=== PATIENT | male | born 1990 | race Caucasian/White ===

== ENCOUNTER 2017-05-19 20:18 | Inpatient (IN) | payer BC, OTHER ==
[~2017-05-19] VITALS: Ht 167.6 cm; Wt 83.9 kg
[2017-05-19 21:45] VITALS: BP 123/75
--- NOTE | 2017-05-19 21:45 | NUR ---
Pre-Admission Pre-admission assessment performed in the intake department of [facility]. Pt is A&O x4 and ambulatory with a steady gait. Pt does not seem intoxicated and answers all questions appropriately. He does appear slightly anxious. Vital signs are B/P 123/75, HR 66, RR 20, O2 sat 100%, T 98.0, pain 0/10. He has NKA and no seizure history. Pt reports that he has been using Xanax, Heroin, and Crystal Meth. He is stable and admission to continue on the [facility].
[2017-05-19] MEDS ORDERED: BUPRENORPHINE HCL 2 MG TAB.SUBL SL PRN (22:15)
[2017-05-19] MEDS ORDERED: MIRALAX 17 GM POWD.PACK PO PRN (22:15)
[2017-05-19] MEDS ORDERED: ACETAMINOPHEN 325 MG TABLET PO PRN (22:15)
[2017-05-19] MEDS ORDERED: LORAZEPAM 2 MG/1 ML VIAL IM PRN (22:15)
[2017-05-19] MEDS ORDERED: ONDANSETRON 4 MG/2 ML VIAL IM PRN (22:15)
[2017-05-19] MEDS ORDERED: LORAZEPAM 1 MG TABLET PO PRN ×2 (22:15)
[2017-05-19] MEDS ORDERED: LOPERAMIDE HCL 2 MG CAPSULE PO PRN ×2 (22:15)
[2017-05-19] MEDS ORDERED: diphenhydrAMINE 50 MG CAPSULE PO PRN (22:15)
[2017-05-19] MEDS ORDERED: MAG HYDROX/AL HYDROX/SIMETH 30 ML LIQUID UDC PO PRN (22:15)
[2017-05-19] MEDS ORDERED: LORAZEPAM 1 MG TABLET PO ONE (23:00)
[2017-05-19] MEDS ORDERED: BUPRENORPHINE HCL 2 MG TAB.SUBL SL ONE ×2 (23:00→23:22)
[2017-05-19 23:15] LABS: BASOPHILS # (AUTO) 0.1 K/uL (0.0-8.0); EOSINOPHILS # (AUTO) 0.4 K/uL (0.0-0.7); EOSINOPHILS % (AUTO) 3.8 % (0.0-7.0); HEMATOCRIT 47.6 % (40-50); LYMPHOCYTES # (AUTO) 3.3 K/UL (0.8-4.8); LYMPHOCYTES % (AUTO) 31.6 % (20.5-51.5); MEAN CORPUSCULAR HGB CONC 34 g/dL (32.0-37.0); MEAN CORPUSCULAR VOLUME 89.5 FL (82.0-92.0); MONOCYTES # (AUTO) 0.8 K/UL (0.1-1.30); MONOCYTES % (AUTO) 7.3 % (0.0-11.0); NEUTROPHILS % (AUTO) 56.3 % (38.5-71.5); PLATELET COUNT (AUTO) 290 K/UL (150-450); RED BLOOD CELL COUNT(AUTO) 5.32 MIL/UL (4.7-6.1); WHITE BLOOD COUNT (AUTO) 10.6 K/UL (4.0-11.2)
[2017-05-19] MEDS ORDERED: TRAZODONE 50 MG TABLET PO PRN (23:15)
[2017-05-19 23:20] LABS: ALANINE AMINOTRANSFERASE 29 U/L (16-63); ALKALINE PHOSPHATASE 64 U/L (50-136); ASPARTATE AMINOTRANSFERASE 14 U/L (15-37); BILIRUBIN,TOTAL 0.2 mg/dL (0.2-1.0); CARBON DIOXIDE 28 mmol/L (21-32); CHLORIDE 106 mmol/L (98-107); CREATININE 1.1 mg/dL (0.6-1.3); GLUCOSE 92 mg/dL (74-106); MAGNESIUM 1.8 mg/dL (1.8-2.4); POTASSIUM 3.7 mmol/L (3.5-5.1); TOTAL PROTEIN, SERUM 6.9 g/dL (6.4-8.2); UREA NITROGEN, BLOOD 13 mg/dL (7-18)
[2017-05-19] MEDS ORDERED: LORAZEPAM 1 MG TABLET ONE (23:20)
[2017-05-19] MEDS ORDERED: ONDANSETRON ODT 4 MG TAB.RAPDIS ONE (23:22)
[2017-05-19] MEDS ORDERED: IBUPROFEN 600 MG TABLET ONE (23:22)
[2017-05-19 23:30] LABS: ETHANOL < 3 MG/DL (0-0)
--- NOTE | 2017-05-19 23:30 | NUR ---
Admission Pt is a 26 yo male who arrived on the [facility] at 2202 on 05/19/17 for medically supervised detox. He is A&O x4 and ambulatory. NKA, full code status, and on a regular diet. Body check performed by TECHNOLOGY DEVELOPMENT INTERN and skin check performed by the nurse. He was oriented to the unit and shown to his room. Pt does not appear intoxicated and answers questions appropriately. He is cooperative during assessment but appears slightly anxious. Vital signs in intake are B/P 123/75, HR 66, RR 20, O2 sat 100%, T 98.0, pain 0/10. He is 5'6" and weighs 185lb. He has PMH of left fractured knee with surgical repair in 2016, drug overdose on 05/15/17, bipolar, anxiety, and depression. Lung sounds clear, PERRLA, brisk capillary refill, bowel sounds present, skin is intact. History of Use 1) Xanax 1-2 mg per day for the past 3 months. Last used 1mg 05/18/17. He has used xanx off and on for 11 years. 2) Heroin inhalation and IV x3 only. 1 gram per day for the past 3 months. Last used 1 gram IV on 05/15/17. He has used heroin for 1 year. 3) Crystal meth inhalation 1 gram per day for the past 1 month. Last used 1 gram on 05/15/17. He has used crystal meth for 1 month. Treatment History [facility] for detox in 2013. Pt takes Seroquel and Prozac at home. He smokes 5 cigarettes per day. He reports that on 05/15/17 he used heroin IV and overdosed. He was treated in the emergency department at [facility] and discharged the same day. His longest period of sobriety was 9 months in 2013. He decided to come to treatment today because "I'm scared". Pt lives at home with his fianc. 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 His primary care physician is Dr. Ackerman in [place]. On admission he is experiencing some s/s of withdrawal. COWS [address] Amezcua on the floor to see the patient. Admission orders received. Pt educated regarding use of the call light and all questions answered. Fall precautions in place. Bed is down with call light in reach. Addendum: 05/20/17 at 0640 by JOHN PAUL MOHAN RN Adilson anaya SI/
[2017-05-19 23:55] VITALS: BP 127/73
[2017-05-19] MEDS: ONDANSETRON ODT 4 MG TAB.RAPDIS SL PRN (23:59)
[2017-05-20] VITALS (9 sets, daily range): BP systolic 92–138; BP diastolic 53–95
--- NOTE | 2017-05-20 | NUR ---
PRN Zofran, PRN Motrin, One time Ativan, One time Subutex Pt c/o nausea, chills, hot and cold flashes, body aches, headache, anxiety, and restlessness. COWS 13 and CIWA 10. Orders received from Dr. Amezcua for one time Ativan and one time Subutex. PRN Zofran and Motrin also administered.
[2017-05-20 00:22] LABS: *AMPHETAMINE, URINE POSITIVE (NEGATIVE); *BARBITURATE, URINE NEGATIVE (NEGATIVE); *CANNABINOID, URINE NEGATIVE (NEGATIVE); *COCCAINE, URINE NEGATIVE (NEGATIVE); *OPIATE, URINE NEGATIVE (NEGATIVE); *PHENCYCLIDINE SCREEN,URINE NEGATIVE (NEGATIVE)
--- NOTE | 2017-05-20 01:00 | NUR ---
Medication reassessment PRN Motrin and Zofran effective. Pt reports headache and nausea relieved. One time subutex and Ativan effective. Pt reports feeling more less anxious. Chills and body aches are somewhat relieved. COWS 7 and CIWA 5.
[2017-05-20] MEDS: CLONIDINE HCL 0.1 MG TABLET PO PRN ×3 (01:20→17:07)
[2017-05-20] MEDS: METHOCARBAMOL 750 MG TABLET PO PRN ×3 (01:21→23:17)
--- NOTE | 2017-05-20 01:22 | NUR ---
PRN Clonidine, Robaxin, and Trazodone Pt reports hot and cold flashes, restlessness, body aches, and inability to sleep. He has moist skin. COWS 7 and CIWA 5. PRN Clonidine, Robaxin, and Trazodone administered.
[2017-05-20] MEDS ORDERED: CLONIDINE HCL 0.1 MG TABLET ONE (01:30)
[2017-05-20] MEDS ORDERED: TRAZODONE 50 MG TABLET ONE (01:31)
[2017-05-20] MEDS ORDERED: METHOCARBAMOL 750 MG TABLET ONE (01:31)
--- NOTE | 2017-05-20 02:22 | NUR ---
Medication reassessment PRN Clonidine, Robaxin, and Trazodone effective. Pt is lying in bed resting with eyes closed. Respirations even and unlabored. Safety measures in place.
[2017-05-20] MEDS ORDERED: FLUO40CA8 PO (05:08)
[2017-05-20] MEDS ORDERED: MULT-331 PO (05:08)
[2017-05-20] MEDS ORDERED: QUET100T PO (05:08)
--- NOTE | 2017-05-20 07:24 | NUR ---
END OF SHIFT Report provided to day shift nurse. Pt is lying in bed resting. He is a 26 yo male admitted to [facility] on 05/19 at 2202 for BZD and opiate dependence with a h/o crystal meth use. He is A&O and ambulatory. NKA, full code, regular diet. PMH of fractured left knee with surgery in 2016, bipolar, anxiety, and depression. He was experiencing withdrawal symptoms upon admission. One time Subutex and one time Ativan administered per Dr. Amezcua. He also received PRN Zofran, Motrin, Robaxin, Clonidine, and Trazodone. Last COWS 7 and CIWA 5 before PRN's. He drank 1200mL and slept for 4 hours[address] Safety measures in place.
--- NOTE | 2017-05-20 07:30 | NUR ---
START OF SHIFT Pt 26 y/o male admitted for BZD and opiate dependence. Pt received in room with eyes closed resting, but easily arousable to name. Pt alert and oriented to name, place, and time. Perrla. Skin warm and moist to touch. Respirations even and unlabored. It was reported that pt slept for 4 hours last night. Pt states was feeling anxious. Bed on lowest position with side rails x2 up for safety. Call light within reach. No distress noted at this time.
[2017-05-20] MEDS ORDERED: GABAPENTIN 300 MG CAPSULE PO SCH (09:00)
[2017-05-20] MEDS ORDERED: TUBERCULIN,PURIF.PROT.DERIV. 5 TU/0.1 ML TEST ID ONE (09:00)
[2017-05-20] MEDS: MULTIVITAMINS,THERAPEUTIC TABLET PO SCH (09:04)
[2017-05-20] MEDS: LORAZEPAM 1 MG TABLET PO SCH ×3 (09:04→20:46)
[2017-05-20] MEDS: ONDANSETRON ODT 4 MG TAB.RAPDIS SL PRN (09:04)
[2017-05-20] MEDS: BUPRENORPHINE HCL 2 MG TAB.SUBL SL SCH ×3 (09:04→20:48)
[2017-05-20] MEDS: IBUPROFEN 600 MG TABLET PO PRN ×3 (09:04→20:47)
--- NOTE | 2017-05-20 09:04 | NUR ---
PRN Pt states feels nauseous. Zofran odt prn per MD order given and tolerated well.
--- NOTE | 2017-05-20 09:04 | NUR ---
PRN Pt states has generalized body pain 6/10. Motrin po prn per MD order given and tolerated well.
--- NOTE | 2017-05-20 10:04 | NUR ---
PRN DEANN Pt states pain 12/27.
--- NOTE | 2017-05-20 10:04 | NUR ---
PRN EVAL Pt denies any nausea at this time.
[2017-05-20] MEDS: HYDROXYZINE PAMOATE 25 MG CAPSULE PO PRN ×2 (10:59→17:07)
[2017-05-20] MEDS: DICYCLOMINE HCL 20 MG TABLET PO PRN (10:59)
--- NOTE | 2017-05-20 12:14 | NUR ---
PRN Pt with cows=12. Pt with c/o chills and sweats. Bilateral hand tremors noted. Pt states feels very uncomfortable. Subutex po prn per MD order given and tolerated well.
--- NOTE | 2017-05-20 13:14 | NUR ---
PRN EVAL Cows=2. Pt states he feels better at this time.
[2017-05-20] MEDS: FLUOXETINE HCL 20 MG CAPSULE PO SCH (15:04)
[2017-05-20] MEDS: GABAPENTIN 300 MG CAPSULE PO SCH ×2 (15:05→20:47)
--- NOTE | 2017-05-20 17:09 | NUR ---
PRN Pt states feels anxious. Vistaril po prn per MD order given and tolerated well.
--- NOTE | 2017-05-20 17:10 | NUR ---
PRN Pt states feels very anxious. Catapres po prn per MD order given and tolerated well.
--- NOTE | 2017-05-20 18:10 | NUR ---
PRN EVAL Pt observed walking around unit. No distress noted at this time.
--- NOTE | 2017-05-20 18:21 | NUR ---
END OF SHIFT Pt 26 y/o male admitted for BZD+ opiate dependence. Pt alert and oriented to name, place, and time. Perrla. Skin warm and slightly moist to touch. Respirations even and unlabored. Bilateral hand tremors noted. Pt with periods of chills and sweats. Pt with periods of anxiety throughout the day. Pt observed mostly in dining room throughout the day. Pt attended group activity today. Pt was seen by MD today. Pt medication compliant and tolerated well. No ASE noted. Bed on lowest position with side rails x2 up for safety. Call light within reach. No distress noted at this time.
--- NOTE | 2017-05-20 20:00 | NUR ---
START OF SHIFT Received report from day shift nurse. Pt is in his room watching TV. He is a 26 yo male admitted to [facility] on 04/21 for BZD and opiate dependence with a h/o crystal meth use. He is A&O and ambulatory. NKA, full code, regular diet. PMH of fractured left knee with surgery in 2016, bipolar, anxiety, and depression. On admission he reported using Xanax 1-2mg per day, heroin 1 gram per day, and crystal meth 1 gram per week. He started a 4 day Subutex and 4 day Ativan taper today. Pt reports chills, hot and cold flashes, muscle aches, and anxiety. Fall precautions in place. Bed is down with call light in reach.
[2017-05-20] MEDS: CLONIDINE HCL 0.1 MG TABLET PO SCH (20:46)
[2017-05-20] MEDS: QUETIAPINE FUMARATE 100 MG TABLET PO SCH (20:47)
--- NOTE | 2017-05-20 20:48 | NUR ---
PRN Motrin Pt c/o headache 01/26. PRN Motrin administered.
--- NOTE | 2017-05-20 21:48 | NUR ---
PRN Motrin reassessment PRN Motrin effective. Pt reports headache is relieved.
--- NOTE | 2017-05-20 23:18 | NUR ---
PRN Robaxin Pt c/o generalized body aches 01/26. PRN Robaxin administered.
[2017-05-21] VITALS: BP 109/70
[2017-05-21 01:30] VITALS: BP 108/69
--- NOTE | 2017-05-21 04:00 | NUR ---
0400 Vitals refused/COWS and CIWA deferred Pt refused to be woken for 0400 vitals. He is lying in bed resting with eyes closed. Respirations even and unlabored. COWS and CIWA ordered Q4HWA. Safety measures in place.
[2017-05-21 06:08] LABS: HEPATITIS B SURFACE AG Negative (Negative)
--- NOTE | 2017-05-21 07:21 | NUR ---
END OF SHIFT Report provided to day shift nurse. Pt is lying in bed resting. He is a 26 yo male admitted to [facility] on 04/21 for BZD and opiate dependence with a h/o crystal meth use. He is A&O and ambulatory. NKA, full code, regular diet. PMH of fractured left knee with surgery in 2016, bipolar, anxiety, and depression. On admission he reported using Xanax 1-2mg per day, heroin 1 gram per day, and crystal meth 1 gram per week. 4 day Subutex and 4 day Ativan taper started 05/20. PRN Motrin and Robaxin administered. Pt woke up with one episode of coughing. He denied SOB. Vital signs were stable O2 sat 98%. Mild wheezing heard in right lung jarquin. Last COWS 3 and CIWA 2. He drank 1500mL and slept for 5 hours. Fall precautions in place. Bed is down with call light in reach.
--- NOTE | 2017-05-21 07:30 | NUR ---
START OF SHIFT Pt 26 y/o male admitted for BZD and opiate dependence. Pt received in room on bed watching television. Pt alert and oriented to name, place, and time. Perrla. Skin warm and moist to touch. Respirations even and unlabored. It was reported that pt slept for 5 hours last night. Pt states was feeling anxious this morning. Bed on lowest position with side rails x2 up for safety. Call light within reach. No distress noted at this time.
[2017-05-21 08:00] VITALS: BP 112/80
[2017-05-21] MEDS: METHOCARBAMOL 750 MG TABLET PO PRN ×2 (08:39→16:39)
[2017-05-21] MEDS: FLUOXETINE HCL 20 MG CAPSULE PO SCH (08:39)
[2017-05-21] MEDS: MULTIVITAMINS,THERAPEUTIC TABLET PO SCH (08:39)
[2017-05-21] MEDS: GABAPENTIN 300 MG CAPSULE PO SCH (08:39)
[2017-05-21] MEDS: CLONIDINE HCL 0.1 MG TABLET PO SCH ×3 (08:39→20:06)
--- NOTE | 2017-05-21 08:39 | NUR ---
PRN Pt states has general body pain /. Robaxin po prn per MD order given and tolerated well.
[2017-05-21] MEDS: ONDANSETRON ODT 4 MG TAB.RAPDIS SL PRN (08:40)
--- NOTE | 2017-05-21 08:40 | NUR ---
PRN Pt states feels nauseated. Zofran odt prn per MD order given and tolerated well.
[2017-05-21] MEDS ORDERED: BUPRENORPHINE HCL 2 MG TAB.SUBL SL SCH ×2 (09:00→15:00)
[2017-05-21] MEDS ORDERED: LORAZEPAM 1 MG TABLET PO SCH (09:00)
--- NOTE | 2017-05-21 09:39 | NUR ---
PRN DEANN Pt states pain 10/29.
--- NOTE | 2017-05-21 09:40 | NUR ---
PRN EVAL Pt denies any nausea at this time.
[2017-05-21] MEDS: HYDROXYZINE PAMOATE 25 MG CAPSULE PO PRN ×2 (09:58→16:40)
[2017-05-21] MEDS: CLONIDINE HCL 0.1 MG TABLET PO PRN (09:58)
--- NOTE | 2017-05-21 09:58 | NUR ---
PRN Pt states feels anxious. Vistaril po prn per MD order given and tolerated well.
--- NOTE | 2017-05-21 09:59 | NUR ---
PRN Pt states feels really anxious. Catapres po prn per MD order given and tolerated well.
--- NOTE | 2017-05-21 10:48 | NUR ---
JIMENEZ ZACARIAS Pt observed walking around the unit.
--- NOTE | 2017-05-21 10:59 | NUR ---
JIMENEZ ZACARIAS Pt observed walking around the unit.
[2017-05-21 12:45] VITALS: BP 125/71
[2017-05-21] MEDS ORDERED: LORAZEPAM 1 MG TABLET PO ONE (12:45)
[2017-05-21] MEDS ORDERED: BUPRENORPHINE HCL 2 MG TAB.SUBL SL ONE (12:45)
--- NOTE | 2017-05-21 14:28 | NUR ---
Therapist prompted client about group times. Client stated he will attend all groups today.
[2017-05-21] MEDS: GABAPENTIN 400 MG CAPSULE PO SCH ×2 (14:30→20:05)
[2017-05-21] MEDS: BACLOFEN 10 MG TABLET PO SCH ×2 (14:30→20:05)
[2017-05-21 16:00] VITALS: BP 126/88
[2017-05-21] MEDS: BUPRENORPHINE HCL 2 MG TAB.SUBL SL SCH ×2 (16:40→20:05)
[2017-05-21] MEDS: LORAZEPAM 1 MG TABLET PO SCH ×2 (16:40→20:05)
--- NOTE | 2017-05-21 18:28 | NUR ---
END OF SHIFT Pt 26 y/o male admitted for BZD+ opiate dependence. Pt alert and oriented to name, place, and time. Perrla. Skin warm and slightly moist to touch. Respirations even and unlabored. Bilateral hand tremors noted. Pt with periods of anxiety throughout the day. Pt observed mostly in dining room throughout the day. Pt attended group activity today. Pt was seen by MD today. Pt medication compliant and tolerated well. No ASE noted. Bed on lowest position with side rails x2 up for safety. Call light within reach. No distress noted at this time.
--- NOTE | 2017-05-21 18:50 | NUR ---
START OF SHIFT NOTE: Patient endorsed by outgoing day shift nurse. Report received. Patient is a 26 year old male admitted to [facility] on 05/19/17 for Benzodiazepines, Opioid, and Methamphetamine dependence, continue 4 Day Ativan and 4 Day Subutex Taper with tolerated well without ASE. Patient remains compliant with treatment, medications, and diet regime. Patient reports NKA. Patient is Full Code, Regular Diet. Patient is on Fall and Seizures Precautions. Patient denies History of Seizures. PMH: Bipolar disorder, Anxiety disorder, Insomnia, Chronic tobacco use. Past Surgical History: Left meniscus repair. Patient reports "[facility] Det[facility] in 2012". Upon endorsement patient is in his Room alert and oriented x 4. Speech is soft and clear. VS: T: 98.5; BP: 134/87; HR: 90; RR:19; O2 SAT: 96%. Generalized body aches level: "7/10". CIWA 7, COWS 7. Patient is anxious and agitated. Patient c/o increased anxiety, nervousness, severe body aches, tremors, and barely sweating. Respiration s clear and even. Patient denies SOB, cough, and chest pain. Breathing Sounds are clear throughout. Bowel Sounds are active in all four quadrants. Patient denies SI/HI. Skin is intact, warm, and dry to touch. Encouraged fluids as tolerated. Encourage to attend groups activities. All needs met. Safety measures on place. Call light within reach, bed in lowest position and locked, padded rails up bilaterally. Will continue to monitor closely.
[2017-05-21 20:00] VITALS: BP 134/87
[2017-05-21] MEDS: QUETIAPINE FUMARATE 100 MG TABLET PO SCH (20:06)
[2017-05-21] MEDS: IBUPROFEN 600 MG TABLET PO PRN (21:54)
--- NOTE | 2017-05-21 21:54 | NUR ---
PRN MOTRIN 600 MG 1 TAB PO ADMINISTRATION Patient c/o low back pain "03/28", and asked aid. PRN Motrin 600 mg 1 tab PO administrated with full glass of water as ordered. Patient tolerated well. All needs met. Safety measures on place. Call light within reach, bed in lowest position and locked, padded rails up bilaterally rails up bilaterally. Will continue to monitor closely.
--- NOTE | 2017-05-21 22:54 | NUR ---
RE-ASSESSMENT Patient is sleeping. Respirations even and unlabored. RR:14. PRN Motrin PO was effective. All needs met. Safety measures on place. Call light within reach, bed in lowest position and locked, padded rails up bilaterally rails up bilaterally. Will continue to monitor closely.
[2017-05-22] VITALS: BP 120/82
[2017-05-22] MEDS: HYDROXYZINE PAMOATE 25 MG CAPSULE PO PRN ×3 (01:04→22:40)
[2017-05-22] MEDS: METHOCARBAMOL 750 MG TABLET PO PRN ×2 (01:04→22:40)
--- NOTE | 2017-05-22 01:04 | NUR ---
ROBAXIN 750 MG PO AND PRN VISTARIL 25 MG 1 CAP PO ADMINISTRATION. Patient c/o myalgia and increased anxiety. PRN Robaxin 750 mg PO for myalgia and PRN Vistaril 25 mg 1 cap PO for anxiety administrated with full glass of water as ordered. Patient tolerated well. All needs met. Safety measures on place. Call light within reach, bed in lowest position and locked, padded rails up bilaterally rails up bilaterally. Will continue to monitor closely.
--- NOTE | 2017-05-22 02:04 | NUR ---
RE-ASSESSMENT Patient is sleeping. Respirations even and unlabored. RR:14. PRN Robaxin 750 mg PO for myalgia and PRN Vistaril 25 mg 1 cap PO were effective. All needs met. Safety measures on place. Call light within reach, bed in lowest position and locked, padded rails up bilaterally rails up bilaterally. Will continue to monitor closely.
[2017-05-22 04:00] VITALS: BP 127/76
--- NOTE | 2017-05-22 07:05 | NUR ---
END OF SHIFT NOTE: Patient endorsed to day shift nurse in stable condition. Report given. Patient is a 26 year old male admitted to [facility] on 05/19/17 for Benzodiazepines, Opioid, and Methamphetamine dependence, continue 4 Day Ativan and 4 Day Subutex Taper with tolerated well without ASE. Patient remains compliant with treatment, medications, and diet regime. Patient reports NKA. Patient is Full Code, Regular Diet. Patient is on Fall and Seizures Precautions. Patient denies History of Seizures. PMH: Bipolar disorder, Anxiety disorder, Insomnia, Chronic tobacco use. Past Surgical History: Left meniscus repair. Patient reports "[facility] in 2012". VS at 0400: T: 97.9; BP: 127/76; HR: 88; RR:16; O2 SAT: 100%. Patient denies pain l: "0/10". CIWA 3 at 0400, COWS 5 at 0400. Patient presented with anxiety, nervousness, severe body aches, tremors, and barely sweating. Respiration s clear and even. Patient denies SOB, cough, and chest pain. Breathing Sounds are clear throughout. Bowel Sounds are active in all four quadrants. Patient denies SI/HI. Skin is intact, warm, and dry to touch. Encouraged fluids as tolerated. Encourage to attend groups activities. PRN Motrin 600 mg PO for low back pain, PRN Robaxin 750 mg 1 tab PO for myalgia, and PRN Vistaril 50 mg 2 cap PO administrated last manager night were effective. Patient slept 4 hours 30 minutes, intake 1,592 ml, voided x2. All needs met. Safety measures on place. Call light within reach, bed in lowest position and locked, padded rails up bilaterally.
--- NOTE | 2017-05-22 08:00 | NUR ---
START OF SHIFT Rcvd endorsement from ongoing nurse, client is in room,he is a/o x4, he presents with anxious mood, flat affect, clammy skin. Client reports generalized body aches 6/10, abdominal cramps and anxiety, he denies any N/V/D or SI/HI. Encouraged client to increase fluid intake to facilitate detox. Encourage client to attend group therapy for skills to maintain sobriety. Client is a 26 yo male admitted for withdrawal from benzodiazepine and heroine. Client is on 5 day Ativan/Subutex taper (day 4), tolerating well. Last CIWA 5 @ 0400. He reports NKA, full code, regular diet. PRN Robaxin for muscle pain, Vistaril for anxiety, noted effective. Client slept 8 hrs. Client denies any history of withdrawal-induced seizure. He is on seizure precautions. Call light within reach. Side rails up x2/padded, bed locked and in low position.
[2017-05-22] MEDS: BACLOFEN 10 MG TABLET PO SCH (08:10)
[2017-05-22] MEDS: DICYCLOMINE HCL 20 MG TABLET PO PRN (08:10)
[2017-05-22] MEDS: FLUOXETINE HCL 20 MG CAPSULE PO SCH (08:10)
[2017-05-22] MEDS: MULTIVITAMINS,THERAPEUTIC TABLET PO SCH (08:10)
[2017-05-22] MEDS: BUPRENORPHINE HCL 2 MG TAB.SUBL SL SCH ×3 (08:10→20:12)
[2017-05-22] MEDS: GABAPENTIN 400 MG CAPSULE PO SCH (08:10)
[2017-05-22] MEDS: IBUPROFEN 600 MG TABLET PO PRN (08:10)
--- NOTE | 2017-05-22 08:10 | NUR ---
PRN Motrin, Vistaril and Bentyl Client reports generalized body aches 6/10, anxiety MB pacing in room and abdominal spasm, above medications administered PO, will continue to monitor. Call light within reach.
[2017-05-22] MEDS: LORAZEPAM 1 MG TABLET PO SCH ×2 (08:11→20:12)
[2017-05-22] MEDS: CLONIDINE HCL 0.1 MG TABLET PO SCH ×2 (08:11→14:10)
[2017-05-22 08:37] VITALS: BP 149/89
--- NOTE | 2017-05-22 09:10 | NUR ---
Reassessment PRN Motrin, Vistaril and Bentyl Client reports relief from generalized body aches 2/10, but tolerable, he appears less anxious and denies abdominal spasms at this time. Call light within reach.
--- NOTE | 2017-05-22 09:12 | NUR ---
Zero induration noted at TB site on L forearm
[2017-05-22 12:30] VITALS: BP 137/89
[2017-05-22] MEDS: KETOROLAC TROMETHAMINE 30 MG INJ IM PRN (12:30)
--- NOTE | 2017-05-22 12:30 | NUR ---
PRN Toradol 30mg Inj administered to R buttock for generalized pain 05/29. call light within reach. Will continue to monitor.
--- NOTE | 2017-05-22 12:31 | NUR ---
One time Subutex 2mg for COWS 7, client presents with anxiety, difficulty staying still, chills, generalized body aches 05/29. Call light within reach. Will continue to monitor.
[2017-05-22] MEDS ORDERED: BUPRENORPHINE HCL 2 MG TAB.SUBL SL ONE (13:00)
--- NOTE | 2017-05-22 13:00 | NUR ---
Reassessment PRN Toradol 30mg Inj, client reports pain relief 0/10. call light within reach. Will continue to monitor.
--- NOTE | 2017-05-22 13:01 | NUR ---
One time Subutex 2mg for COWS 3, client appears less anxious, he reports feeling a little bit better, pain 0/10. Call light within reach. Will continue to monitor.
[2017-05-22] MEDS: GABAPENTIN 300 MG CAPSULE PO SCH ×2 (14:09→20:14)
[2017-05-22] MEDS: DICYCLOMINE HCL 20 MG TABLET PO SCH ×2 (14:09→20:12)
[2017-05-22] MEDS: BACLOFEN 20 MG TABLET PO SCH ×2 (14:10→20:14)
[2017-05-22 16:55] VITALS: BP 143/97
--- NOTE | 2017-05-22 19:15 | NUR ---
START OF SHIFT NOTE: Patient endorsed by day shift nurse. Report received. Patient is a 26 year old male admitted to [facility] on 05/19/17 for Benzodiazepines, Opioid, and Methamphetamine dependence, continue 5 Day Ativan and 5 Day Subutex Taper with tolerated well without ASE. Patient remains compliant with treatment, medications, and diet regime. Patient reports NKA. Patient is Full Code, Regular Diet. Patient is on Fall and Seizures Precautions. Patient denies History of Seizures. PMH: Bipolar disorder, Anxiety disorder, Insomnia, Chronic tobacco use. Past Surgical History: Left meniscus repair. Patient reports "[facility] in 2012". Upon endorsement patient is in the his Room c/o generalized body aches "7/10" and Nausea. Patient denies vomiting and diarrhea. Assessment done. Patient is alert and oriented x4. Speech is clear and soft. VS: T: 98.3; BP: 142/90; HR: 88; RR:19; O2 SAT: 96%. Patient reports pain level of "the over the body aches : 7/10". CIWA 7, COWS 5. Patient presented with anxiety, nervousness, severe body aches, tremors, nausea, and barely sweating. Respiration s clear and even. Patient denies SOB, cough, and chest pain. Breathing Sounds are clear throughout. Bowel Sounds are active in all four quadrants. Patient denies SI/HI. Skin is intact, warm, and dry to touch. Encouraged fluids as tolerated. Encourage to attend groups activities. All needs met. Safety measures on place. Call light within reach, bed in lowest position and locked, padded rails up bilaterally.
--- NOTE | 2017-05-22 19:15 | NUR ---
START OF SHIFT Client is a 26 yo male admitted for withdrawal from benzodiazepine and heroine. Client is on 5 day Ativan/Subutex taper (day 4), tolerating well. Last CIWA 4/COWS 5 @ 1600. He reports NKA, full code, regular diet. PRN Robaxin for muscle pain, Vistaril for anxiety, Bentyl for abdominal spasm, One time Subutex 2mg COWS 7, after medication COWS 3, PRN Toradol 30mg Inj for generalized pain 05/29, noted effective. Adequate intake 2500mL, void x 10, stool x 2. Client denies any history of withdrawal-induced seizure. He is on seizure precautions. Call light within reach. Side rails up x2/padded, bed locked and in low position. Addendum: 05/22/17 at 1916 by DEMARIO HIGUERA RN END OF SHIFT
[2017-05-22] MEDS: ONDANSETRON ODT 4 MG TAB.RAPDIS SL PRN (19:18)
--- NOTE | 2017-05-22 19:18 | NUR ---
PRN ZOFRAN ODT 4 MG TAB.RAPDIS SL AND PRN TYLENOL 650 MG 2 TAB PO ADMINISTRATION. Upon endorsement by outgoing day shift nurse, patient is in his Room c/o generalized body aches "7/10" and Nausea. Patient denies vomiting and diarrhea. Assessment done. Patient is alert and oriented x4. Speech is clear and soft. VS: T: 98.3; BP: 142/90; HR: 88; RR:19; O2 SAT: 96%. Patient reports pain level of "the over the body aches : 7/10". CIWA 7, COWS 5. Patient presented with anxiety, nervousness, severe body aches, tremors, nausea, and barely sweating. PRN Zofran Odt 4 mg RAPDIS SL for nausea and PRN Tylenol 650 mg 2 tab PO for pain level "7/10" administrated as ordered. Patient tolerated well. All needs met. Safety measures on place. Call light within reach, bed in lowest position and locked, padded rails up bilaterally rails up bilaterally. Will continue to monitor closely.
[2017-05-22 20:00] VITALS: BP 142/90
[2017-05-22] MEDS: QUETIAPINE FUMARATE 100 MG TABLET PO SCH (20:12)
--- NOTE | 2017-05-22 20:18 | NUR ---
RE-ASSESSMENT Patient is sleeping. Respirations even and unlabored. RR:16. PRN Tylenol PO and PRN Zofran RAPDIS SL were effective. All needs met. Safety measures on place. Call light within reach, bed in lowest position and locked, padded rails up bilaterally rails up bilaterally. Will continue to monitor closely.
[2017-05-22] MEDS ORDERED: CLONIDINE HCL 0.2 MG TABLET PO SCH (21:00)
--- NOTE | 2017-05-22 22:40 | NUR ---
PRN ROBAXIN 750 MG 1 TAB PO AND PRN VISTARIL 50 MG 2 CAP PO ADMINISTRATION. Patient c/o myalgia and increased anxiety. PRN Robaxin 750 mg 1 tab PO and PRN Vistaril 50 mg 2 cap PO administrated with full glass of water as ordered. Patient tolerated well. All needs met. Safety measures on place. Call light within reach, bed in lowest position and locked, padded rails up bilaterally rails up bilaterally. Will continue to monitor closely.
--- NOTE | 2017-05-22 23:40 | NUR ---
RE-ASSESSMENT Patient is sleeping. Respirations even and unlabored. RR:15. PRN Robaxin 750 mg PO for myalgia and PRN Vistaril 25 mg 1 cap PO were effective. All needs met. Safety measures on place. Call light within reach, bed in lowest position and locked, padded rails up bilaterally rails up bilaterally. Will continue to monitor closely.
[2017-05-23] VITALS: BP 129/85
[2017-05-23 04:00] VITALS: BP 120/75
[2017-05-23] MEDS: CLONIDINE HCL 0.1 MG TABLET PO PRN (04:37)
--- NOTE | 2017-05-23 04:37 | NUR ---
PRN CLONIDINE 0.1 MG 1 TAB PO ADMINISTRATION. Patient c/o increased anxiety . PRN Clonidine 0.1 mg 1 Tab PO administrated with full glass of water as ordered. Patient tolerated well. All needs met. Safety measures on place. Call light within reach, bed in lowest position and locked, padded rails up bilaterally rails up bilaterally. Will continue to monitor closely.
--- NOTE | 2017-05-23 05:37 | NUR ---
RE-ASSESSMENT Patient is sleeping. Respirations even and unlabored. RR:16. PRN Clonidine PO was effective. All needs met. Safety measures on place. Call light within reach, bed in lowest position and locked, padded rails up bilaterally rails up bilaterally. Will continue to monitor closely.
--- NOTE | 2017-05-23 07:09 | NUR ---
END OF SHIFT NOTE: Patient endorsed to day shift nurse. Report given. Patient is a 36 year old male admitted to [facility] on 05/21/2017 for medically supervised withdrawal from Benzodiazepines, Opioid, and Methamphetamine dependence. Patient reports NKA.. Patient placed on Full Code, Regular Diet, Fall and Seizures Precautions. Patient denies Seizures History. Past Medical History: Hepatitis C virus, Anxiety disorder, Depressive disorder, Chronic tobacco use, History of alcohol use disorder. VS at 0400: T: 98'2; BP: 124/80; HR: 62; RR: 20; O2 SAT: 97%. Patient denies pain now: "0/10". CIWA 3, COWS 3 at 0400. Patient denies SI/HI. Respirations unlabored and even. Patient denies SOB and chest pain. Heart rate is regular. Patient has BLE pitting edema +4. Skin is warm and dry to touch. Patient has swollen left hand with abrasion on the left index. No open wounds noted. Left hand and BLE elevated. Encourage fluids as tolerated. Encourage to attend activities groups. No PRN Medications administrated last night. Patient slept 8 hours, intake 1,180 ml, voided x3. All needs met. Safety measures on place. Call light within reach, bed in lowest position and locked, padded rails up bilaterally. Addendum: 05/23/17 at 0712 by STEPHANY CULVER RN wrong patient
--- NOTE | 2017-05-23 07:12 | NUR ---
END OF SHIFT NOTE: Patient endorsed to day shift nurse in stable condition. Report given. Patient is a 26 year old male admitted to [facility] on 05/19/17 for Benzodiazepines, Opioid, and Methamphetamine dependence, continue 4 Day Ativan and 4 Day Subutex Taper with tolerated well without ASE. Patient remains compliant with treatment, medications, and diet regime. Patient reports NKA. Patient is Full Code, Regular Diet. Patient is on Fall and Seizures Precautions. Patient denies History of Seizures. PMH: Bipolar disorder, Anxiety disorder, Insomnia, Chronic tobacco use. Past Surgical History: Left meniscus repair. VS at 0400: T: 98.5; BP: 120/75; HR: 79; RR:18; O2 SAT: 100 %. Patient denies pain now: 03/28". CIWA 6, COWS 5. Patient presented with anxiety, nervousness, severe body aches, tremors, nausea, and barely sweating. Respirations clear and even. Patient denies SOB, cough, and chest pain. Patient denies SI/HI. Skin is intact, warm, and dry to touch. Encouraged fluids as tolerated. Encourage to attend groups activities. PRN Zofran PRN [id number] mg 2 Tab PO for body aches "8/10", PRN Robaxin 750 mg 1 tab PO for myalgia, PRN Vistaril 50 mg 2 cap PO for anxiety, and PRN Clonidine 0.1 mg 1 Tab PO for anxiety administrated last assembler 1st shift were effective. Patient slept 5 hours, intake 1,073 ml, voided x2. All needs met. Safety measures on place. Call light within reach, bed in lowest position and locked, padded rails up bilaterally. All needs met. Safety measures on place. Call light within reach, bed in lowest position and locked, padded rails up bilaterally.
[2017-05-23 08:00] VITALS: BP 131/76
--- NOTE | 2017-05-23 08:15 | NUR ---
START OF SHIFT: RECEIVED PT A/O X 4. HE PRESENTS WITH IRRITABLE MOOD AND CONGRUENT AFFECT. HE STATES HE FEELS FATIGUED WITH SOME ANXIETY AND BODY ACHES. COWS 4 CIWA 1. HE VERBALIZED ENTHUSIASM TOWARD RECOVERY. ENCOURAGED GROUP ATTENDANCE TO OMPROVE COPING SKILLS AND PREVENT RELAPSE. WILL CONTINUE TO MONITOR AND OFFER SUPPORT.
[2017-05-23] MEDS: DICYCLOMINE HCL 20 MG TABLET PO SCH ×3 (08:37→20:24)
[2017-05-23] MEDS: CLONIDINE HCL 0.1 MG TABLET PO SCH (08:37)
[2017-05-23] MEDS: FLUOXETINE HCL 20 MG CAPSULE PO SCH (08:38)
[2017-05-23] MEDS: BACLOFEN 20 MG TABLET PO SCH ×3 (08:38→20:23)
[2017-05-23] MEDS: GABAPENTIN 300 MG CAPSULE PO SCH (08:39)
[2017-05-23] MEDS: MULTIVITAMINS,THERAPEUTIC TABLET PO SCH (08:39)
[2017-05-23] MEDS ORDERED: LORAZEPAM 1 MG TABLET PO SCH ×2 (09:00→21:00)
[2017-05-23] MEDS ORDERED: BUPRENORPHINE HCL 2 MG TAB.SUBL SL SCH (09:00)
[2017-05-23 12:00] VITALS: BP 130/85
[2017-05-23] MEDS: CLONIDINE HCL 0.2 MG TABLET PO SCH ×2 (14:30→20:23)
[2017-05-23] MEDS: GABAPENTIN 400 MG CAPSULE PO SCH ×2 (14:30→20:22)
[2017-05-23] MEDS: BUPRENORPHINE HCL 2 MG TAB.SUBL SL SCH ×2 (14:31→20:22)
[2017-05-23 16:00] VITALS: BP 138/87
--- NOTE | 2017-05-23 18:43 | NUR ---
END OF SHIFT: PT CONTINUES ON SUBUTEX/ATIVAN TAPER WHICH WAS EXTENDED. LAST COWS 4 CIWA 2. HE REPORTED BODY ACHES,CHILLS AND ANXIETY AND SWEATS. HE ATTENDED GROUPS AND INTERACTED WITH PEERS. HE EXPRESSED ENTHUSIASM TOWARD RECOVERY. WILL PASS SHIFT REPORT TO ONCOMING NIGHT NURSE.
--- NOTE | 2017-05-23 18:50 | NUR ---
START OF SHIFT NOTE: Patient endorsed by day shift nurse. Report received. Patient is a 26 year old male admitted to [facility] on 05/19/17 for Benzodiazepines, Opioid, and Methamphetamine dependence, continue 5 Day Ativan and 5 Day Subutex Taper with tolerated well without ASE. Patient remains compliant with treatment, medications, and diet regime. Patient reports NKA. Patient is Full Code, Regular Diet. Patient is on Fall and Seizures Precautions. Patient denies History of Seizures. PMH: Bipolar disorder, Anxiety disorder, Insomnia, Chronic tobacco use. Past Surgical History: Left meniscus repair. Upon endorsement patient is alert and oriented x4. Speech is clear and soft. VS: T: 98.5; BP: 132/85; HR: 77; RR:18; O2 SAT: 97%. Patient denies any pain now : 0/10". CIWA 7, COWS 5. Patient presented with anxiety, nervousness, severe body aches, tremors, nausea, and barely sweating. Respiration s clear and even. Patient denies SOB, cough, and chest pain. Breathing Sounds are clear throughout. Bowel Sounds are active in all four quadrants. Patient denies SI/HI. Skin is intact, warm, and dry to touch. Encouraged fluids as tolerated. Encourage to attend groups activities. All needs met. Safety measures on place. Call light within reach, bed in lowest position and locked, padded rails up bilaterally.
[2017-05-23 20:00] VITALS: BP 132/85
[2017-05-23] MEDS: QUETIAPINE FUMARATE 100 MG TABLET PO SCH (20:22)
[2017-05-23] MEDS: METHOCARBAMOL 750 MG TABLET PO PRN (23:46)
[2017-05-23] MEDS: HYDROXYZINE PAMOATE 25 MG CAPSULE PO PRN (23:46)
--- NOTE | 2017-05-23 23:46 | NUR ---
PRN ROBAXIN 750 MG 1 TAB PO AND PRN VISTARIL 25 MG 1CAP PO ADMINISTRATION. Patient c/o myalgia and increased anxiety. PRN Robaxin 750 mg 1 tab PO and PRN Vistaril 25mg 1 cap PO administrated with full glass of water as ordered. Patient tolerated well. All needs met. Safety measures on place. Call light within reach, bed in lowest position and locked, padded rails up bilaterally rails up bilaterally. Will continue to monitor closely.
[2017-05-24] VITALS: BP 114/70
--- NOTE | 2017-05-24 00:46 | NUR ---
RE-ASSESSMENT Patient is sleeping. Respirations even and unlabored. RR:16. PRN Robaxin 750 mg PO for myalgia and PRN Vistaril 25 mg 1 cap PO were effective. All needs met. Safety measures on place. Call light within reach, bed in lowest position and locked, padded rails up bilaterally rails up bilaterally. Will continue to monitor closely.
[2017-05-24] MEDS: KETOROLAC TROMETHAMINE 30 MG INJ IM PRN ×2 (01:58→23:34)
--- NOTE | 2017-05-24 01:58 | NUR ---
PRN TORADOL 30 MG/1 ML IM ADMINISTRATION Patient c/o generalized body aches pain "9/10"and asked aid. PRN Toradol Inj 30 mg/1 ml IM on Left Upper Deltoid Muscle administrated full glass of water as ordered. Patient tolerated well. All needs met. Safety measures on place. Call light within reach, bed in lowest position and locked, padded rails up bilaterally rails up bilaterally. Will continue to monitor closely.
--- NOTE | 2017-05-24 02:58 | NUR ---
RE-ASSESSMENT Patient is sleeping. Respirations even and unlabored. RR: 15. PRN Toradol Inj 30 mg/1 ml IM was effective. All needs met. Safety measures on place. Call light within reach, bed in lowest position and locked, padded rails up bilaterally rails up bilaterally. Will continue to monitor closely.
[2017-05-24 04:00] VITALS: BP 100/43
--- NOTE | 2017-05-24 07:13 | NUR ---
END OF SHIFT NOTE: Patient endorsed to day shift nurse in stable condition. Report given. Patient is a 26 year old male admitted to [facility] on 05/19/17 for Benzodiazepines, Opioid, and Methamphetamine dependence, continue 4 Day Ativan and 4 Day Subutex Taper with tolerated well without ASE. Patient remains compliant with treatment, medications, and diet regime. Patient reports NKA. Patient is Full Code, Regular Diet. Patient is on Fall and Seizures Precautions. Patient denies History of Seizures. PMH: Bipolar disorder, Anxiety disorder, Insomnia, Chronic tobacco use. Past Surgical History: Left meniscus repair. VS at 0400: T: 97.8; BP: 100/43; HR: 70; RR:16; O2 SAT: 96 %. Patient denies pain now: "0/10". CIWA 3 at 0400, COWS 4 at 0400. Respirations unlabored and even. Patient denies SOB, cough, and chest pain. Patient denies SI/HI. Skin is intact, warm, and dry to touch. Encouraged fluids as tolerated. Encourage to attend groups activities. PRN Robaxin 750 mg 1 tab PO for myalgia, PRN Vistaril 25 mg 1 cap PO for anxiety, and PRN Toradol Inj. IM for severe low back pain administrated to patient last ultrasound applications specialist as ordered, and were effective. Patient slept 2 hours, intake 500 ml, voided x1. All needs met. Safety measures on place. Call light within reach, bed in lowest position and locked, padded rails up bilaterally. All needs met. Safety measures on place. Call light within reach, bed in lowest position and locked, padded rails up bilaterally.
[2017-05-24 08:00] VITALS: BP 108/57
--- NOTE | 2017-05-24 08:00 | NUR ---
START OF SHIFT: RECEIVED PT A/O X 4. HE PRESENTS WITH ANXIOUS MOOD AND CONGRUENT AFFECT.HE REPORTS A RESTLESS NIGHT SLEEP AND STATES HE HAD CHILLS AND SWEATS TRYING TO SLEEP LAST NIGHT. HE REPORTS ANXIETY AND BODY ACHES AND STATES THE DETOX MEDS ARE EFFECTIVE. SUBUTEX /ATIVAN TAPER IN PROGRESS. CIWA 4 COWS 4 . HE REPORTS ATTENDING GROUPS AND ACTIVITIES. WILL CONTINUE TO MONITOR AND PROVIDE SUPPORT.
[2017-05-24] MEDS: MULTIVITAMINS,THERAPEUTIC TABLET PO SCH (08:24)
[2017-05-24] MEDS: GABAPENTIN 400 MG CAPSULE PO SCH (08:24)
[2017-05-24] MEDS: FLUOXETINE HCL 20 MG CAPSULE PO SCH (08:24)
[2017-05-24] MEDS: DICYCLOMINE HCL 20 MG TABLET PO SCH ×3 (08:24→20:09)
[2017-05-24] MEDS: BACLOFEN 20 MG TABLET PO SCH ×3 (08:24→20:09)
[2017-05-24] MEDS: CLONIDINE HCL 0.2 MG TABLET PO SCH ×3 (08:41→20:12)
[2017-05-24] MEDS ORDERED: LORAZEPAM 1 MG TABLET PO SCH (09:00)
[2017-05-24] MEDS ORDERED: BUPRENORPHINE HCL 2 MG TAB.SUBL SL SCH (09:00)
[2017-05-24 12:00] VITALS: BP 126/83
[2017-05-24] MEDS ORDERED: BUPRENORPHINE HCL 2 MG TAB.SUBL SL ONE (12:30)
[2017-05-24] MEDS ORDERED: LORAZEPAM 1 MG TABLET PO ONE (12:30)
[2017-05-24] MEDS: GABAPENTIN 300 MG CAPSULE PO SCH ×2 (14:58→20:09)
[2017-05-24 16:00] VITALS: BP 127/63
--- NOTE | 2017-05-24 18:32 | NUR ---
END OF SHIFT: PT COMPLETED SUBUTEX/ATIVAN TAPER. MD ORDERED EXTRA DOSE TODAY OF ATIVAN AND SUBUTEX WHICH WAS EFFECTIVE IN REDUCING REPORTED BODY ACHES,SWEATS AND ANXIETY.LAST COWS 4 CIWA 2. HE ATTENDED GROUPS AND INTERACTED WITH PEERS.HE IS SCHEDULED FOR DISCHARGE ON 05/25. HE EXPRESSED ENTHUSIASM TOWARD RECOVERY. WILL PASS SHIFT REPORT TO ONCOMING NIGHT NURSE.
--- NOTE | 2017-05-24 19:50 | NUR ---
START OF SHIFT NOTE: Report received from AM nurse. Patient is a 26 year old male admitted to [facility] on 05/19/17 for Benzodiazepines, Opioid, and Methamphetamine dependence, completed a 5 Day Ativan and 5 Day Subutex Taper. Patient remains compliant with treatment, medications, and diet regime. Patient reports NKA. Patient is Full Code, Regular Diet. Patient is on Fall and Seizures Precautions. Patient denies History of Seizures. PMH: Bipolar disorder, Anxiety disorder, Insomnia. Last COWS 4 CIWA 2 Patient presented with anxiety, restlessness, hyperverbal, and worried. denies SI/HI. Skin is intact, warm, and dry to touch. Encouraged fluids as tolerated. Encourage to attend groups activities. All needs met. Safety measures on place. Call light within reach, bed in lowest position and locked, padded rails up bilaterally.
[2017-05-24 20:00] VITALS: BP 127/90
[2017-05-24] MEDS ORDERED: QUET200T PO (20:05)
[2017-05-24] MEDS ORDERED: IBUP-1955 PO (20:05)
[2017-05-24] MEDS ORDERED: HYDR-3895 PO (20:05)
[2017-05-24] MEDS ORDERED: GABA-534 PO (20:05)
[2017-05-24] MEDS ORDERED: BACL20TA PO (20:05)
[2017-05-24] MEDS ORDERED: CLON0.2T12 PO (20:05)
[2017-05-24] MEDS ORDERED: DICY20TA28 PO (20:05)
[2017-05-24] MEDS ORDERED: QUETIAPINE FUMARATE 200 MG TABLET PO SCH (21:00)
[2017-05-24] MEDS ORDERED: QUETIAPINE FUMARATE 100 MG TABLET PO SCH (21:00)
[2017-05-24] MEDS: METHOCARBAMOL 750 MG TABLET PO PRN (21:47)
[2017-05-24] MEDS: HYDROXYZINE PAMOATE 25 MG CAPSULE PO PRN (21:47)
--- NOTE | 2017-05-24 21:47 | NUR ---
PRN medication Robaxin 750 mg PO given at 2147 for c/o myalgia throughout core and legs. Effect pending Vistaril 25 mg Po given at 2147 for c/o anxiety with effect pending.
--- NOTE | 2017-05-24 22:47 | NUR ---
Reassessment of patient Patient reassessed one hour after administration of PRN Robaxin 750 mg given for myalgia. PAtient reports little relief one hour later. states pain is between a 6-7. Patient reports relief from anxiety one hour after receiving Vistaril 25 mg PO.
--- NOTE | 2017-05-24 23:34 | NUR ---
PRN MEdication Torodol 30 mg IM given in Left deltoid at 2334. Patient with complaints of pain of 9 out 0f 10 in core and down bilateral legs and knees. Effect pending.
[2017-05-25] VITALS: BP 129/73
--- NOTE | 2017-05-25 00:35 | NUR ---
Reassessment of patient Patient reports relief one hour after receiving Torodol 30 mg IM PRN for pain. Patient reports pain now approximately a 2-3.
--- NOTE | 2017-05-25 04:00 | NUR ---
CIWA/COWS deferred VS refused Patient refused 0400 Vital signs due to wanting to sleep. COWS and CIWA deferred as patient lying comfortably in bed with eyes closed. Breathing even and unlabored Respirations 16
--- NOTE | 2017-05-25 06:56 | NUR ---
End OF SHIFT NOTE: Report given to AM nurse. Patient is a 26 year old male admitted to [facility] on 05/19/17 for Benzodiazepine, Opiate, and Methamphetamine dependence, completed a 5 Day Ativan and 5 Day Subutex Taper. Patient remains compliant with treatment, medications, and diet regime. Patient reports NKA. Patient is Full Code, regular Diet. Patient is on fall and seizure precautions. Patient denies History of Seizures. PMH: Bipolar disorder, anxiety disorder, and insomnia. Last COWS 6 CIWA 5. Vital signs at 0000 129/73, 85, R 18, SPO2 97% on RA, T 98.1. Patient received PRN Robaxin at 2147 for pain with mild effect, and prn vistaril at 2147 with good effect noted. Patient also received PRN torodol IM at 2334 with good effect noted. Patient presented throughout shift with anxiety, restlessness,and pain. He denies SI/HI. Skin is intact, warm, and dry to touch. Intake 855 Ml Output 3 voids Slept a total of 4.5 hours. All needs met. Safety measures on place. Call light within reach, bed in lowest position and locked, padded rails up bilaterally.
--- NOTE | 2017-05-25 07:30 | NUR ---
START OF SHIFT Pt 26 y/o male admitted for BZD and opiate dependence. Pt received in room on bed with eyes closed resting, but easily arousable to name. Pt alert and oriented to name, place, and time. Perrla. Skin warm and dry to touch. Respirations even and unlabored. It was reported that pt slept for 5 hours last night. Pt is scheduled to be discharged today. Bed on lowest position with side rails x2 up for safety. Call light within reach. No distress noted at this time.
[2017-05-25 08:14] VITALS: BP 111/56
[2017-05-25] MEDS: GABAPENTIN 300 MG CAPSULE PO SCH (08:30)
[2017-05-25] MEDS: MULTIVITAMINS,THERAPEUTIC TABLET PO SCH (08:30)
[2017-05-25] MEDS: FLUOXETINE HCL 20 MG CAPSULE PO SCH (08:30)
[2017-05-25] MEDS: BACLOFEN 20 MG TABLET PO SCH (08:30)
[2017-05-25] MEDS: DICYCLOMINE HCL 20 MG TABLET PO SCH (08:31)
[2017-05-25] MEDS: CLONIDINE HCL 0.2 MG TABLET PO SCH (08:32)
[2017-05-25 12:00] VITALS: BP 103/80
--- NOTE | 2017-05-25 12:35 | NUR ---
DISCHARGE Pt discharged to [facility] via private transport. Pt alert and oriented to name, place, and time. Perrla. Skin warm and dry to touch. Respirations even and unlabored. Pt excited about discharge. Discharge papers, prescriptions, and belongings were packed in bag. No Belongings in cabinet or cassette noted. VS wnl. No distress noted.
== END 2017-05-25 12:35 | disposition other institution (70) | DRG 895 ==
LOC: SRC 21:33
PROVIDERS: ADMIT Internal Medicine; ATTEND Internal Medicine
PROC: HZ2ZZZZ Detoxification Services for Substance Abuse Treatment (ICD-10-PCS; principal; 2017-05-19)
PROC: HZ41ZZZ Group Counseling for Substance Abuse Treatment, Behavioral (ICD-10-PCS; 2017-05-20)
PROC: HZ31ZZZ Individual Counseling for Substance Abuse Treatment, Behavioral (ICD-10-PCS; 2017-05-21)
DX: F11.23 Opioid dependence with withdrawal (principal); F31.5 Bipolar disorder, current episode depressed, severe, with psychotic features; I10 Essential (primary) hypertension; F15.20 Other stimulant dependence, uncomplicated; F10.21 Alcohol dependence, in remission; F13.230 Sedative, hypnotic or anxiolytic dependence with withdrawal, uncomplicated; F17.210 Nicotine dependence, cigarettes, uncomplicated; G47.00 Insomnia, unspecified; Z81.8 Family history of other mental and behavioral disorders; Z81.1 Family history of alcohol abuse and dependence; Z79.899 Other long term (current) drug therapy; Z91.89 Other specified personal risk factors, not elsewhere classified; F41.9 Anxiety disorder, unspecified
CPT/HCPCS: 36415; 70030-TC; 80307; 80324; 83735; 85025; 86580; 86592; 86705; 86803; 87340; 87806; A4663; G0480; J1885; Q0162